=== PATIENT | male | born 1940 | race Caucasian/White ===

== ENCOUNTER 2017-04-11 05:18 | Emergency (ER) | payer MEDICARE ==
[~2017-04-11] VITALS: Ht 167.6 cm; Wt 81.8 kg
[2017-04-11] MEDS ORDERED: ADVIL200 MG PO (05:27)
[2017-04-11] MEDS ORDERED: PRINIVIL20 MG PO (05:27)
[2017-04-11] MEDS ORDERED: CEPHALEXIN500 M1 PO (08:13)
[2017-04-11 08:46] VITALS: BP 149/94; PULSE 88
[2017-04-12] MEDS ORDERED: MULTIPLE VITAMI1 CAP PO (15:32)
[2017-04-12] MEDS ORDERED: PROVENTIL0.09 MG/A1 IH (15:45)
[2017-04-12] MEDS ORDERED: APRESOLINE 25MG25 MG PO (17:53)
== END 2017-04-11 08:40 | disposition home or self-care (01) ==
LOC: COL.ER 05:18
DX: R04.0 Epistaxis (principal); I10 Essential (primary) hypertension; Z79.1 Long term (current) use of non-steroidal anti-inflammatories (NSAID)

== ENCOUNTER 2017-04-12 15:26 | Emergency (ER) | payer MEDICARE ==
[~2017-04-12] VITALS: Ht 167.6 cm; Wt 83.6 kg
[~2017-04-12 15:26] MED LIST: ADVIL200 MG PO; CEPHALEXIN500 M1 PO; PRINIVIL20 MG PO
[2017-04-12 15:28] VITALS: TEMP 98.2
[2017-04-12] MEDS ORDERED: MULTIPLE VITAMI1 CAP PO (15:32)
[2017-04-12] MEDS ORDERED: PROVENTIL0.09 MG/A1 IH (15:45)
[2017-04-12 16:08] LABS: BASO % 0.4 % (0.0-2.0); EOS # 0.3 (0.0-0.7); EOS % 2.2 % (0-4.0); GRAN # 8.4 (1.4-6.5); GRAN % 74.9 % (42.2-75.2); HEMATOCRIT 38.9 % (42.0-52.0); HEMOGLOBIN 13.3 g/dl (13.5-18.0); LYMPH # 1.5 (1.2-3.4); LYMPH % 13.1 % (20.0-51.0); MEAN CELL VOLUME 96 fl (80.0-100.0); MEAN CORPUSCULAR HEMOGLOBIN 33 pg (27.0-31.0); MEAN CORPUSCULAR HGB CONC 34 g/dl (33.0-37.0); MEAN PLATELET VOLUME 9.7 fl (7.4-10.4); PLATELET COUNT 238 K/mm3 (130-400); RED BLOOD COUNT 4.06 M/mm3 (4.20-5.60); WHITE BLOOD COUNT 11.2 K/mm3 (4.8-10.8)
[2017-04-12 16:13] LABS: INR 1.1 (0.8-3.0); PROTHROMBIN TIME 12.3 SECONDS (9.7-12.8)
[2017-04-12 16:20] LABS: ADJUSTED CALCIUM 9.1 mg/dL (8.4-10.2); ALBUMIN 4.3 gm/dL (3.5-5.0); BILIRUBIN,TOTAL 0.8 mg/dL (0.0-1.0); CALCIUM 9.3 mg/dL (8.4-10.2); CREATININE, serum 0.85 mg/dL (0.66-1.25); POTASSIUM 4.7 mmol/L (3.4-5.0); TOTAL PROTEIN 7.7 gm/dL (6.4-8.2)
[2017-04-12] MEDS ORDERED: APRESOLINE 25MG25 MG PO (17:53)
[2017-04-12 18:00] VITALS: BP 148/83; PULSE 84
== END 2017-04-12 18:14 | disposition home or self-care (01) ==
LOC: COL.ER 15:26
PROVIDERS: Emergency Medicine
DX: R04.0 Epistaxis (principal); I10 Essential (primary) hypertension; J45.909 Unspecified asthma, uncomplicated
CPT/HCPCS: J0360

== ENCOUNTER 2017-04-29 08:28 | Outpatient (RCR) | payer MEDICARE, OTHER ==
[~2017-04-29 08:28] MED LIST changes: +APRESOLINE 25MG25 MG PO; +MULTIPLE VITAMI1 CAP PO; +PROVENTIL0.09 MG/A1 IH
== END 2017-07-28 | disposition home or self-care (01) ==
LOC: WSST
DX: R13.11 Dysphagia, oral phase (principal)

== ENCOUNTER → 2017-05-23 | Outpatient (CLI) | payer MEDICARE, OTHER | LOC: COL.RAD 08:22 | DX: R13.11 Dysphagia, oral phase (principal) | CPT/HCPCS: G8996-GN; G8997-GN; G8998-GN ==

== ENCOUNTER → 2017-09-05 | Outpatient (CLI) | payer MEDICARE, OTHER ==
[~2017-09-05] VITALS: Ht 167.6 cm; Wt 83.7 kg
[~2017-09-05] MED LIST changes: +ASPIRIN 81M81 MG/TA2 PO; +FLONASEALLERGY NS; +NORVASC 10MG10 MG PO; +ZANTAC 150MG T150 MG PO; +ZYRTEC 10MG10 MG PO
[2017-09-05 10:48] VITALS: BP 163/99; PULSE 87
[2017-09-05 11:45] VITALS: BP 168/92; PULSE 89
[2017-09-05 11:46] VITALS: BP 156/84; PULSE 93
[2017-09-05 11:47] VITALS: BP 184/98; PULSE 103
[2017-09-05 11:50] VITALS: BP 172/88; PULSE 98
== END ==
LOC: COL.CARD 10:30
DX: I25.10 Atherosclerotic heart disease of native coronary artery without angina pectoris (principal); R06.02 Shortness of breath
CPT/HCPCS: A9502; J2785